=== PATIENT | male | born 1985 | race Caucasian/White ===

== ENCOUNTER 2017-02-13 02:35 | Emergency (ER) | payer MEDICAID ==
[2017-02-13 02:51] VITALS: BP 134/92
[2017-02-13] MEDS ORDERED: Acetaminophen/HYDROcodone 325-10 MG Tab PO ONE (03:03)
[2017-02-13] MEDS ORDERED: Ketorolac 60 MG/2 ML SDV IM ONE (03:03)
--- NOTE | 2017-02-13 03:03 | EDM.PDOC ---
ED HPI GENERAL MEDICAL PROBLEM - General Chief Complaint: ENT Problem Stated Complaint: abscessed tooth Time Seen by Provider: 02/13/17 02:45 Source of Information: Reports: Patient History Limitations: Reports: No Limitations - History of Present Illness INITIAL COMMENTS - FREE TEXT/NARRATIVE: 31 YO WM presents to ER with toothache x 2 days. Pt reports he woke from sleep this am with swelling and pain to right lower katheryn prompting ER evaluation. Pt denies any fever/chills. Pt reports history of dental infections to this specific tooth. 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 Right Face Pain Score (Numeric/FACES): 8 - Related Data Allergies Allergy/AdvReac Type Severity Reaction Status Date / Time No Known Drug Allergies Allergy Cannot Verified 02/13/17 02:42 Remember Home Meds: Home Meds Cetirizine HCl [Cetirizine HCl] 10 mg PO DAILY 06/01/15 [History] Fluticasone Propionate [Flovent Diskus] 50 mcg KAILA DAILY 06/01/15 [History] Fluticasone Propionate [Flovent HFA 110 MCG] 2 puff INH Q4HR PRN 06/01/15 [ History] Lisinopril [Lisinopril] 10 mg PO DAILY 06/01/15 [History] Ibuprofen 400 mg PO TID 08/10/15 [History] Multivitamin [Daily Nida] 1 tab PO DAILY 12/14/15 [History] atorvaSTATin [Lipitor] 10 mg PO BEDTIME 12/14/15 [History] Albuterol [Ventolin HFA] 1 - 2 puff INH Q4H PRN 02/13/17 [History] Hydrocodone/Acetaminophen [Hydrocodon-Acetaminophn 10-325] 1 tab PO Q6H PRN #15 tablet 02/13/17 [Rx] Ibuprofen [Motrin] 800 mg PO Q8H #15 tablet 02/13/17 [Rx] Metoprolol Succinate 12.5 mg PO DAILY 02/13/17 [History] Penicillin V Potassium [IJD: Penicillin V Potassium] 500 mg PO .EVERY 6 HOURS # 40 tab 02/13/17 [Rx] Past Medical History HEENT History: Reports: Other (See Below) Other HEENT History: abscess tooth to right lower mouth Cardiovascular History: Reports: High Cholesterol, Hypertension Other Respiratory History: meningitis and pneumonia as a baby Gastrointestinal History: Reports: None Psychiatric History: Reports: ADHD Endocrine/Metabolic History: Reports: Obesity/BMI 30+ - Infectious Disease History Infectious Disease History: Reports: Chicken Pox, Meningitis - Past Surgical History HEENT Surgical History: Reports: Other (See Below) Cardiovascular Surgical History: Reports: Other (See Below) Respiratory Surgical History: Reports: None Social & Family History - Tobacco Use Smoking Status *Q: Never Smoker Second Hand Smoke Exposure: No - Caffeine Use Caffeine Use: Reports: Soda - Recreational Drug Use Recreational Drug Use: No - Living Situation & Occupation Living situation: Reports: Occupation: Employed ED ROS ENT - Review of Systems Review Of Systems: See Below Constitutional: Reports: No Symptoms HEENT: Reports: No Symptoms Respiratory: Reports: No Symptoms Cardiovascular: Reports: No Symptoms Endocrine: Reports: No Symptoms GI/Abdominal: Reports: No Symptoms : Reports: No Symptoms Musculoskeletal: Reports: No Symptoms Skin: Reports: No Symptoms Neurological: Reports: No Symptoms Psychiatric: Reports: No Symptoms Hematologic/Lymphatic: Reports: No Symptoms Immunologic: Reports: No Symptoms ED EXAM, ENT - Physical Exam Exam: See Below Exam Limited By: No Limitations General Appearance: Alert, WD/WN, No Apparent Distress Ears: Normal External Exam, Normal Canal, Hearing Grossly Normal, Normal TMs Nose: Normal Inspection, Normal Mucousa, No Blood Mouth/Throat: Dental Abcess, Dental Pain, Dental Tenderness Head: Atraumatic, Normocephalic Neck: Normal Inspection, Supple, Non-Tender, Full Range of Motion Respiratory/Chest: No Respiratory Distress, Lungs Clear, Normal Breath Sounds, No Accessory Muscle Use, Chest Non-Tender Cardiovascular: Normal Peripheral Pulses, Regular Rate, Rhythm, No Edema, No Gallop, No JVD, No Murmur, No Rub GI/Abdominal: Normal Bowel Sounds, Soft, Non-Tender, No Organomegaly, No Distention, No Abnormal Bruit, No Mass Back: Normal Inspection, Full Range of Motion Extremities: Normal Inspection, Normal Range of Motion, Non-Tender, No Pedal Edema, Normal Capillary Refill Neurological: Alert, Oriented, CN II-XII Intact, Normal Cognition, Normal Gait, Normal Reflexes, No Motor/Sensory Deficits Psychiatric: Normal Affect, Normal Mood Skin: Warm, Dry, Intact, Normal Color, No Rash Lymphatic: No Adenopathy Course - Vital Signs Last Recorded V/S: Last Vital Signs Temp 37.2 C 02/13/17 02:49 Pulse 62 02/13/17 02:49 Resp 12 02/13/17 02:49 BP 134/92 H 02/13/17 02:49 Pulse Ox 98 02/13/17 02:49 - Orders/Labs/Meds Orders: Active Orders 24 hr Category Date Time Status Acetaminophen/HYDROcodone [[place] 325-10 MG] Med 02/13/17 03:03 Once 1 tab PO ONETIME ONE Ketorolac [Toradol] Med 02/13/17 03:03 Once 60 mg IM ONETIME ONE Penicillin V Potassium [Veetids] Med 02/13/17 03:15 Ordered 250 mg PO Q8H Departure - Departure Time of Disposition: 03:10 Disposition: Home, Self-Care 01 Condition: Good Clinical Impression: Dental abscess - Discharge Information Prescriptions: Hydrocodone/Acetaminophen [Hydrocodon-Acetaminophn 10-325] 1 tab PO Q6H PRN #15 tablet PRN Reason: Pain Ibuprofen [Motrin] 800 mg PO Q8H #15 tablet Penicillin V Potassium [IJD: Penicillin V Potassium] 500 mg PO .EVERY 6 HOURS # 40 tab Instructions: Dental Abscess Forms: ED Department Discharge - My Orders Last 24 Hours: My Active Orders 02/13/17 03:03 Acetaminophen/HYDROcodone [[place] 325-10 MG] 1 tab PO ONETIME ONE Ketorolac [Toradol] 60 mg IM ONETIME ONE 02/13/17 03:15 Penicillin V Potassium [Veetids] 250 mg PO Q8H - Assessment/Plan Last 24 Hours: My Active Orders 02/13/17 03:03 Acetaminophen/HYDROcodone [[place] 325-10 MG] 1 tab PO ONETIME ONE Ketorolac [Toradol] 60 mg IM ONETIME ONE 02/13/17 03:15 Penicillin V Potassium [Veetids] 250 mg PO Q8H Assessment:: 1. dental abscess Plan: 1. pen Vee K 500mg PO Q6 x 10 days 2. hydrocodone 10mg Q6 PRN 3. motrin 800mg PO Q8 4. follow up with dentist in 2 days for further evaluation and treatment
[2017-02-13] MEDS ORDERED: Acetaminophen/HYDROcodone 325-5 MG Tab ONE ×2 (03:04→03:14)
[2017-02-13] MEDS ORDERED: Penicillin V Potassium 250 MG Tab ONE (03:04)
[2017-02-13] MEDS ORDERED: Ketorolac 60 MG/2 ML SDV ONE (03:05)
[2017-02-13] MEDS ORDERED: Penicillin V Potassium 250 MG Tab PO ONE (03:15)
[2017-02-13] MEDS ORDERED: Penicillin V Potassium 250 MG Tab PO SCH (03:15)
[2017-02-13] MEDS ORDERED: Acetaminophen/HYDROcodone 325-5 MG Tab PO ONE (03:35)
== END 2017-02-13 03:25 | disposition home or self-care (01) ==
LOC: KA.ED 02:35
DX: K04.7 Periapical abscess without sinus (principal); I10 Essential (primary) hypertension; E78.00 Pure hypercholesterolemia, unspecified; E66.9 Obesity, unspecified; Z68.31 Body mass index [BMI] 31.0-31.9, adult; Z87.01 Personal history of pneumonia (recurrent); Z79.899 Other long term (current) drug therapy
CPT/HCPCS: 96372; 99282; A9270; J1885

== ENCOUNTER 2020-03-15 14:13 | Observation (INO) | payer MEDICAID ==
[2020-03-15] MEDS ORDERED: Sodium Chloride 0.9% 10 ML Syringe FLUSH PRN (14:14)
[2020-03-15] MEDS ORDERED: Aspirin 81 MG Tab.Chew PO SCH (14:30)
--- NOTE | 2020-03-15 18:54 | PCM.SN.2 ---
- Free Text/Narrative Note: Rounding note, patient sitting up in bed conversing with 4/10 chest pain. Initial troponin 0.08. No shortness of breath. Repeat troponin due now. Patient did state to nursing staff that he desires to be discharged if repeat troponin levels are normal.
[2020-03-15 19:03] VITALS: BP 116/79; PULSE 78
== END 2020-03-15 21:05 | disposition home or self-care (01) ==
LOC: KA.MS 15:12
PROVIDERS: ADMIT Nurse Practitioner Family; ATTEND Nurse Practitioner Family
DX: I25.110 Atherosclerotic heart disease of native coronary artery with unstable angina pectoris (principal); G89.29 Other chronic pain; I10 Essential (primary) hypertension; E66.9 Obesity, unspecified; R53.82 Chronic fatigue, unspecified; F33.0 Major depressive disorder, recurrent, mild; E55.9 Vitamin D deficiency, unspecified; F41.9 Anxiety disorder, unspecified; K21.9 Gastro-esophageal reflux disease without esophagitis; Z79.899 Other long term (current) drug therapy; Z68.33 Body mass index [BMI] 33.0-33.9, adult; Z95.5 Presence of coronary angioplasty implant and graft; Z82.49 Family history of ischemic heart disease and other diseases of the circulatory system; Z79.82 Long term (current) use of aspirin
CPT/HCPCS: 36415; 84484; A9270-GY; G0378

== ENCOUNTER 2020-03-28 20:03 | Emergency (ER) | payer MEDICAID ==
[2020-03-28] MEDS ORDERED: Aspirin 81 MG Tab.Chew ONE (20:19)
[2020-03-28] MEDS ORDERED: Aspirin 81 MG Tab.Chew PO ONE (20:33)
[2020-03-28 21:14] LABS: ANION GAP 15.5 mmol/L (5-15); CHLORIDE,CL 102 mmol/L (98-115); SODIUM,NA 138 mmol/L (136-145)
[2020-03-28] MEDS ORDERED: Nitroglycerin 0.4 MG Tab.SL ONE (21:20)
[2020-03-28] MEDS ORDERED: Nitroglycerin 0.4 MG Tab.SL SL ONE (21:24)
[2020-03-28] MEDS ORDERED: Alum Hydrox/Mag Hydrox/Simeth 30 ML, Lidocaine 2% 15 ML PO ONE ×2 (21:41)
[2020-03-28] MEDS ORDERED: Diazepam 5 MG Tab PO ONE (21:44)
[2020-03-28 21:56] VITALS: PULSE 81
[2020-03-28 22:23] VITALS: BP 117/89
--- NOTE | 2020-03-28 22:25 | EDM.PDOC ---
ED HPI GENERAL MEDICAL PROBLEM - General Chief Complaint: Cardiovascular Problem Stated Complaint: CHEST PAIN Time Seen by Provider: 03/28/20 20:15 Source of Information: Reports: Patient, Family (sister) - History of Present Illness INITIAL COMMENTS - FREE TEXT/NARRATIVE: 34-year-old male presents emergency room with complaint of chest pain. She states that he's had chest pain for about 2 weeks and had an overnight admission and workup for his chest pain with EKGs and serial troponins. He followed up with his primary care most recently yesterday with a troponin of 0.08. He reports that his chest pain is been consistently there for the last 2 weeks but waxes and wanes. This morning when he woke up symptoms seem to last for 30 minutes. They're relieved when he lies down. He has no radiation of the pain to his jaw neck shoulder and arm back or abdomen. He is not had episodes of diaphoresis currently his chest pain seemed to worsen this evening between 7 and 7:15 rating it a 7 or 8 out of possible 10. He took a nitroglycerin and it relieved his pain by half. He feels the chest pain was a 45 after the nitroglycerin. He elected to have further workup and proceed to the emergency room and was brought in by his sister. Currently his pain is a 4 out of 5. He was given an additional nitroglycerin at 2125 and had improvement of his pain now rated only a 2 out of 10. His vital signs blood pressures were within his normal range. He was afebrile. O2 saturations were in the high 90's% on room air. Past medical history significant for mild asthma coronary artery disease hypercholesterol. Past surgical history significant for stent placement in 2018. He has had a repeat angiogram for his chronic chest pain in 2019 which was per patient report unremarkable. He has seen GI and has had an upper GI scope in the last year he has history of a hiatal hernia and reflux disease. He reports his reflux seems to be fairly well controlled with omeprazole. He gets short of breath sometimes but feels this is likely from his asthma and not from exercise or extra-axial cavity. Cholesterol is been well controlled on statins. He takes an aspirin a day. He does not smoke or chew he does not use drugs. He had a recent follow-up with cardiology 6 months ago and he states that they changed his isosorbide. He does tell me that he has had some anxiety in the past and has tried Xanax without relief. He does state that he has also had some depression but is not currently on anything for this over the last 4 years he feels it's fairly well controlled. Did repeat his EKG which showed a normal sinus rhythm and pulse rate is 76 bpm. His troponin is within normal limits. Onset: Gradual, Unknown/Unsure Duration: Week(s):, Chronic, Intermittent, Recurring, Waxing/Waning Location: Reports: Chest Quality: Reports: Pressure Severity: Moderate Improves with: Reports: Medication, Rest Worsens with: Reports: Other (unknown) Associated Symptoms: Reports: Chest Pain, Malaise. 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: Nitroglycerin Chest Pain Score (Numeric/FACES): 2 - Related Data Allergies Allergy/AdvReac Type Severity Reaction Status Date / Time Seasonal Allergy Shortness Uncoded 03/28/20 21:52 of Breath Home Meds: Home Meds Cetirizine HCl 10 mg PO DAILY 06/01/15 [History] Lisinopril 10 mg PO DAILY 06/01/15 [History] atorvaSTATin [Lipitor] 10 mg PO BEDTIME 12/14/15 [History] Albuterol [Ventolin HFA] 2 puff INH ASDIRECTED PRN 02/13/17 [History] Ascorbate Calcium [Vitamin C] 500 mg PO DAILY 06/09/18 [History] Aspirin [Adult Low Dose Aspirin EC] 81 mg PO DAILY 06/09/18 [History] Azelastine HCl 1 spray NASBOTH BID PRN 06/09/18 [History] Montelukast [Singulair] 10 mg PO BEDTIME 06/09/18 [History] Nitroglycerin [Nitrostat] 0.4 mg SL ASDIRECTED PRN 06/09/18 [History] amLODIPine [Norvasc] 5 mg PO DAILY 06/09/18 [History] Budesonide [Pulmicort] 0.5 mg IH BID 03/15/20 [History] Cholecalciferol (Vitamin D3) [Vitamin D3] 2,000 unit PO DAILY 03/15/20 [History] EPINEPHrine [Epinephrine] 0.3 mg IM ASDIRECTED PRN 03/15/20 [History] Fluticasone Propionate [Flovent HFA 110 MCG] 2 puff PO BEDTIME 03/15/20 [History] Isosorbide Mononitrate [Imdur] 60 mg PO BID 03/15/20 [History] Omeprazole 40 mg PO DAILY 03/15/20 [History] Past Medical History HEENT History: Reports: Other (See Below) Other HEENT History: abscess tooth to right lower mouth, sinus congesstion Cardiovascular History: Reports: High Cholesterol, Hypertension, Stents, Syncope, Other (See Below) Other Cardiovascular History: mitral valve regurgitation Respiratory History: Reports: Asthma, Other (See Below) Other Respiratory History: meningitis and pneumonia as a baby Gastrointestinal History: Reports: Hiatal Hernia Psychiatric History: Reports: ADHD Endocrine/Metabolic History: Reports: Obesity/BMI 30+, Vitamin D Deficiency Hematologic History: Reports: Anticoagulation Therapy - Infectious Disease History Infectious Disease History: Reports: None - Past Surgical History HEENT Surgical History: Reports: None, Other (See Below) Other HEENT Surgeries/Procedures: repair of deviated septum Cardiovascular Surgical History: Reports: Coronary Artery Stent, Other (See Below) Other Cardiovascular Surgeries/Procedures: Angiogram Respiratory Surgical History: Reports: None GI Surgical History: Reports: None Endocrine Surgical History: Reports: None Social & Family History - Family History Family Medical History: Noncontributory - Tobacco Use Smoking Status *Q: Never Smoker - Caffeine Use Caffeine Use: Reports: Coffee, Soda - Recreational Drug Use Recreational Drug Use: No - Living Situation & Occupation Living situation: Reports: Occupation: Employed ED ROS GENERAL - Review of Systems Review Of Systems: See Below Constitutional: Reports: Malaise, Fatigue, Night Sweats. Denies: Fever, Chills, Weakness, Diaphoresis HEENT: Reports: Sinus Problem. Denies: Eye Pain, Throat Swelling, Vertigo Respiratory: Reports: Shortness of Breath. Denies: Wheezing, Pleuritic Chest Pain, Sputum Cardiovascular: Reports: Chest Pain, Blood Pressure Problem, Palpitations. Denies: Dyspnea on Exertion, Edema, Lightheadedness, Orthopnea, PND, Syncope Endocrine: Reports: No Symptoms GI/Abdominal: Reports: No Symptoms : Reports: No Symptoms Musculoskeletal: Denies: Neck Pain, Shoulder Pain, Arm Pain, Back Pain, Leg Pain Skin: Denies: Cyanosis, Diaphoresis, Bruising, Pruritis Neurological: Reports: Headache, Numbness (occasionally hands and legs). Denies: Paresthesia, Trouble Speaking, Difficulty Walking Psychiatric: Reports: Anxiety, Depression Hematologic/Lymphatic: Reports: No Symptoms Immunologic: Reports: No Symptoms ED EXAM, GENERAL - Physical Exam Exam: See Below Exam Limited By: No Limitations General Appearance: Alert, WD/WN, No Apparent Distress, Obese Eye Exam: Bilateral Eye: EOMI Ears: Hearing Grossly Normal Nose: Normal Inspection Throat/Mouth: Normal Voice, No Airway Compromise Head: Atraumatic, Normocephalic Neck: Normal Inspection, Supple, Non-Tender, Full Range of Motion Respiratory/Chest: No Respiratory Distress, Lungs Clear, Normal Breath Sounds, No Accessory Muscle Use, Chest Non-Tender Cardiovascular: Normal Peripheral Pulses, Regular Rate, Rhythm, No JVD, No Murmur Peripheral Pulses: 2+: Radial (L), Radial (R), Dorsalis Pedis (L), Dorsalis Pedis (R) GI/Abdominal: Normal Bowel Sounds, Soft, Non-Tender, No Organomegaly, No Distention, No Abnormal Bruit, No Mass, Other (obese) Back Exam: Normal Inspection, Full Range of Motion Extremities: Normal Inspection, Normal Range of Motion, Non-Tender, No Pedal Edema Neurological: Alert, Oriented, Normal Cognition, No Motor/Sensory Deficits Psychiatric: Normal Mood, Flat Affect Skin Exam: Warm, Dry, Intact, Normal Color, No Rash Lymphatic: No Adenopathy EKG INTERPRETATION EKG Date: 03/28/20 Time: 20:10 Rhythm: NSR Rate (Beats/Min): 76 [place]: Normal P-Wave: Present QRS: Normal ST-T: Normal QT: Normal Comparison: No Change EKG Interpretation Comments: Normal sinus rhythm normal ECG Course - Vital Signs Last Recorded V/S: Last Vital Signs Temp 97.7 F 03/28/20 21:55 Pulse 81 03/28/20 21:55 Resp 20 03/28/20 21:55 BP 118/84 03/28/20 21:55 Pulse Ox 95 03/28/20 21:55 - Orders/Labs/Meds Orders: Active Orders 24 hr Category Date Time Status EKG Documentation Completion [RC] ASDIRECTED Care 03/28/20 20:33 Active EKG 12 Lead [EK] Stat Ther 03/28/20 20:32 Ordered Labs: Laboratory Tests 03/28/20 03/28/20 03/28/20 Range/Units 20:30 20:30 20:30 WBC 9.23 (5.00-10.00) 10^3/uL RBC 5.26 (4.50-6.00) 10^6/uL Hgb 15.8 (13.0-17.0) g/dL Hct 44.7 (40.0-52.0) % MCV 85.0 (82.0-92.0) fL MCH 30.0 (27.0-31.0) pg MCHC 35.3 (32.0-36.0) g/dL RDW 12.0 (11.5-14.5) % Plt Count 269 (150-400) 10^3/uL MPV 9.4 (7.4-10.4) fL Immature Gran % (Auto) 0.2 (0.0-5.0) % Neut % (Auto) 60.3 (50.0-70.0) % Lymph % (Auto) 28.4 (20.0-40.0) % [place] % (Auto) 9.4 H (2.0-8.0) % Eos % (Auto) 1.4 (1.0-3.0) % Baso % (Auto) 0.3 (0.0-1.0) % Neut # (Auto) 5.56 (2.50-7.00) 10^3/uL Lymph # (Auto) 2.62 (1.00-4.00) 10^3/uL [place] # (Auto) 0.87 H (0.10-0.80) 10^3/uL Eos # (Auto) 0.13 (0.10-0.30) 10^3/uL Baso # (Auto) 0.03 (0.00-0.10) 10^3/uL Immature Gran # (Auto) 0.02 (0.00-0.50) 10^3/uL D-Dimer, Quantitative 142 (<400) ng/mL Sodium 138 (136-145) mmol/L Potassium 3.7 (3.3-5.3) mmol/L Chloride 102 (98-115) mmol/L Carbon Dioxide 24.2 (21.0-32.0) mmol/L Anion Gap 15.5 H (5-15) mmol/L BUN 14 (6-25) mg/dL Creatinine 0.80 (0.51-1.17) mg/dL Est Cr Clr Drug Dosing 128.88 mL/min Estimated GFR (MDRD) > 60 mL/min Glucose 131 H (75 - 99) mg/dL Calcium 8.3 L (8.7-10.3) mg/dL Total Bilirubin 0.3 (0.2-1.0) mg/dL AST 19 (15-37) U/L ALT 38 (12-78) U/L Alkaline Phosphatase 105 (46-116) IU/L Troponin I 0.06 (0.00-0.070) ng/mL Total Protein 7.0 (6.4-8.2) g/dL Albumin 3.92 (3.00-4.80) g/dL Meds: Medications Discontinued Medications Generic Name Dose Route Start Last Admin Trade Name Freq PRN Reason Stop Dose Admin Aspirin Confirm 03/28/20 20:19 03/28/20 20:49 Aspirin Administered 03/28/20 20:20 Not Given Dose 324 mg .ROUTE .STK-MED ONE Aspirin 324 mg 03/28/20 20:33 03/28/20 20:20 Aspirin PO 03/28/20 20:34 324 mg ONETIME ONE Administration Al Hydroxide/Mg Hydroxide 30 0 ml 03/28/20 21:41 03/28/20 21:46 ml/ Lidocaine HCl 15 ml PO 03/28/20 21:42 45 ml ONETIME ONE Administration Diazepam 5 mg 03/28/20 21:44 03/28/20 21:49 Valium. PO 03/28/20 21:45 5 mg ONETIME ONE Administration Nitroglycerin Confirm 03/28/20 21:20 03/28/20 21:25 Nitrostat Administered 03/28/20 21:21 Not Given Dose 0.4 mg .ROUTE .STK-MED ONE Nitroglycerin 0.4 mg 03/28/20 21:24 03/28/20 21:26 Nitrostat SL 03/28/20 21:25 0.4 mg ONETIME ONE Administration Departure - Departure Time of Disposition: 22:29 Disposition: Home, Self-Care 01 Condition: Good Clinical Impression: Stable angina, Chronic chest pain, History of coronary artery stent placement, History of hiatal hernia, History of anxiety GERD (gastroesophageal reflux disease) Qualifiers: Esophagitis presence: without esophagitis Qualified Code(s): K21.9 - Gastro- esophageal reflux disease without esophagitis Instructions: Angina, [id number] Referrals: Carmel Burkett CANE PUSHER [Primary Care Provider] - Forms: ED Department Discharge Additional Instructions: Follow-up Recommendations to the emergency room: -Chest discomfort last greater than 5 minutes -Chest discomfort gets worse in any way -History of angina, and discomfort not relieved by usual medications, nitroglycerin, at rest -Chest discomfort moves anterior arm, neck, back, jaw, or stomach -If you experience diaphoresis associated with chest pain. Follow-up with your primary care for your chest pain for outpatient assessment. Sepsis Event Note (ED) - Evaluation Sepsis Screening Result: No Definite Risk - Focused Exam Vital Signs: Vital Signs Temp Pulse Resp BP BP Pulse Ox 03/28/20 21:55 97.7 F 81 20 118/84 95 03/28/20 21:34 84 20 123/73 96 03/28/20 21:26 141/97 H 03/28/20 21:00 91 20 153/103 H 97 03/28/20 20:35 97.4 F 97 20 134/83 97 - My Orders Last 24 Hours: My Active Orders 03/28/20 20:32 EKG 12 Lead [EK] Stat 03/28/20 20:33 EKG Documentation Completion [RC] ASDIRECTED - Assessment/Plan Last 24 Hours: My Active Orders 03/28/20 20:32 EKG 12 Lead [EK] Stat 03/28/20 20:33 EKG Documentation Completion [RC] ASDIRECTED Assessment:: Stable angina Chronic chest pain History of coronary artery stent History of hiatal hernia History of reflux History of anxiety Plan: Follow-up Recommendations to the emergency room: -Chest discomfort last greater than 5 minutes -Chest discomfort gets worse in any way -History of angina, and discomfort not relieved by usual medications, nitroglycerin, at rest -Chest discomfort moves anterior arm, neck, back, jaw, or stomach -If you experience diaphoresis associated with chest pain. Follow-up with your primary care for your chest pain for outpatient assessment. I had a long discussion with the patient regarding his workup this evening as well as his past. Troponin is within normal limits and his EKG looks unremarkable with a normal sinus rhythm no evidence of ST elevation or depression. No T-wave abnormalities. His symptoms have been chronic over the last 2 years as he has told me with an exacerbation of the symptoms over the last 2 weeks. He has not had a recent stress test since his stent placement in 2018. He though has had a repeat angiogram a year ago and alert unremarkable. We had a long discussion about placing him observational telemetry tonight versus being discharged to home. He feels comfortable with going home tonight but with the understanding that if any of the above following recommendations that I discharge with him should occur that he would return to the emergency room. I do recommend that he follow-up with his primary care and consideration for further workup was discussed with the patient. He was discharged home with his sister in stable condition.
== END 2020-03-28 22:30 | disposition home or self-care (01) ==
LOC: KA.ED 20:03
DX: I25.119 Atherosclerotic heart disease of native coronary artery with unspecified angina pectoris (principal); K21.9 Gastro-esophageal reflux disease without esophagitis; F41.9 Anxiety disorder, unspecified; E78.00 Pure hypercholesterolemia, unspecified; I10 Essential (primary) hypertension; J45.909 Unspecified asthma, uncomplicated; E66.9 Obesity, unspecified; Z68.34 Body mass index [BMI] 34.0-34.9, adult; Z95.5 Presence of coronary angioplasty implant and graft; Z87.19 Personal history of other diseases of the digestive system; Z91.09 Other allergy status, other than to drugs and biological substances; Z79.899 Other long term (current) drug therapy; Z79.82 Long term (current) use of aspirin
CPT/HCPCS: 36415; 80053; 84484; 85025; 85379; 93005; 99285-25; A9270-GY

== ENCOUNTER 2021-03-06 20:12 | Emergency (ER) | payer MEDICAID ==
--- NOTE | 2021-03-06 20:54 | EDM.PDOC ---
ED HPI GENERAL MEDICAL PROBLEM - General Chief Complaint: Chest Pain Stated Complaint: chest pain Time Seen by Provider: 03/06/21 20:37 Source of Information: Reports: Patient, Significant Other History Limitations: Reports: No Limitations - History of Present Illness INITIAL COMMENTS - FREE TEXT/NARRATIVE: Patient presents with chest pain that started about 9.5 hours ago at 4-5/10 (that was about 1100). At 1900, 1.5 hours ago the pain became worse 6-7/10 and his noticed a little sweating for 3-4 minutes. He also has pain in his left elbow. He has taken 3 adult aspirin today. He sometimes takes a nitro but didn't today because his BP was low. He had a LAD stent placed in 2018 and in recovery afterward had an DE. Since then he has had a few episodes of chest p ain that brought him to ER. He also had a stressful argument with his earlier today. Left Chest Pain Score (Numeric/FACES): 6 - Related Data Allergies Allergy/AdvReac Type Severity Reaction Status Date / Time Seasonal Allergy Shortness Uncoded 03/28/20 21:52 of Breath Home Meds: Home Meds Cetirizine HCl 10 mg PO DAILY 06/01/15 [History] Lisinopril 10 mg PO DAILY 06/01/15 [History] atorvaSTATin [Lipitor] 10 mg PO BEDTIME 12/14/15 [History] Albuterol [Ventolin HFA] 2 puff INH ASDIRECTED PRN 02/13/17 [History] Ascorbate Calcium [Vitamin C] 500 mg PO DAILY 06/09/18 [History] Aspirin [Adult Low Dose Aspirin EC] 81 mg PO DAILY 06/09/18 [History] Azelastine HCl 1 spray NASBOTH BID PRN 06/09/18 [History] Montelukast [Singulair] 10 mg PO BEDTIME 06/09/18 [History] Nitroglycerin [Nitrostat] 0.4 mg SL ASDIRECTED PRN 06/09/18 [History] amLODIPine [Norvasc] 5 mg PO DAILY 06/09/18 [History] Budesonide [Pulmicort] 0.5 mg IH BID 03/15/20 [History] Cholecalciferol (Vitamin D3) [Vitamin D3] 2,000 unit PO DAILY 03/15/20 [History] EPINEPHrine [Epinephrine] 0.3 mg IM ASDIRECTED PRN 03/15/20 [History] Fluticasone Propionate [Flovent HFA 110 MCG] 2 puff PO BEDTIME 03/15/20 [History] Isosorbide Mononitrate [Imdur] 60 mg PO BID 03/15/20 [History] Omeprazole 40 mg PO DAILY 03/15/20 [History] Past Medical History HEENT History: Reports: Other (See Below) Other HEENT History: abscess tooth to right lower mouth, sinus congesstion Cardiovascular History: Reports: High Cholesterol, Hypertension, Stents, Syncope, Other (See Below) Other Cardiovascular History: mitral valve regurgitation Respiratory History: Reports: Asthma, Other (See Below) Other Respiratory History: meningitis and pneumonia as a baby Gastrointestinal History: Reports: Hiatal Hernia Psychiatric History: Reports: ADHD Endocrine/Metabolic History: Reports: Obesity/BMI 30+, Vitamin D Deficiency Hematologic History: Reports: Anticoagulation Therapy - Infectious Disease History Infectious Disease History: Reports: None - Past Surgical History HEENT Surgical History: Reports: None, Other (See Below) Other HEENT Surgeries/Procedures: repair of deviated septum Cardiovascular Surgical History: Reports: Coronary Artery Stent, Other (See Below) Other Cardiovascular Surgeries/Procedures: Angiogram Respiratory Surgical History: Reports: None GI Surgical History: Reports: None Endocrine Surgical History: Reports: None Social & Family History - Family History Family Medical History: No Pertinent Family History - Caffeine Use Caffeine Use: Reports: Coffee, Soda - Living Situation & Occupation Living situation: Reports: Occupation: Employed ED ROS GENERAL - Review of Systems Review Of Systems: See Below Constitutional: Denies: Fever, Chills, Malaise, Weakness HEENT: Denies: Throat Pain, Vision Change Respiratory: Denies: Shortness of Breath, Cough Cardiovascular: Reports: Chest Pain. Denies: Lightheadedness, Syncope GI/Abdominal: Denies: Abdominal Pain, Constipation, Diarrhea, Nausea, Vomiting : Denies: Dysuria, Flank Pain Musculoskeletal: Reports: Arm Pain (left). Denies: Neck Pain, Shoulder Pain, Back Pain, Hand Pain Skin: Reports: Diaphoresis. Denies: Cyanosis, Jaundice, Mottled, Pallor Neurological: Denies: Confusion, Dizziness, Headache, Seizure, Syncope, Trouble Speaking, Difficulty Walking Psychiatric: Denies: Agitation, Anxiety, Confusion ED EXAM, GENERAL - Physical Exam Exam: See Below Exam Limited By: No Limitations General Appearance: Alert, WD/WN, No Apparent Distress Eye Exam: Bilateral Eye: EOMI, Normal Inspection, PERRL Ears: Normal External Exam, Hearing Grossly Normal Nose: Normal Inspection, No Blood Throat/Mouth: Normal Inspection, Normal Lips, Normal Voice, No Airway Compromise Head: Atraumatic, Normocephalic Neck: Normal Inspection, Full Range of Motion Respiratory/Chest: No Respiratory Distress, Lungs Clear, Normal Breath Sounds Cardiovascular: Regular Rate, Rhythm, No Murmur GI/Abdominal: Normal Bowel Sounds, Soft, Non-Tender, No Organomegaly, No Distention Back Exam: Normal Inspection, Full Range of Motion. No: CVA Tenderness (L), CVA Tenderness (R) Extremities: Normal Inspection, Normal Range of Motion Neurological: Alert, Oriented, Normal Cognition, No Motor/Sensory Deficits Psychiatric: Normal Affect, Normal Mood Skin Exam: Warm, Dry, Intact, No Rash, Pallor (they think he is a little pale) #1 Interpretation EKG Date: 03/06/21 Rhythm: NSR Rate (Beats/Min): 74 [place]: Normal P-Wave: Present QRS: Normal ST-T: Normal (with inverted T in III, V1) QT: Normal Course - Vital Signs Last Recorded V/S: Last Vital Signs Temp 97.0 F 03/06/21 20:15 Pulse 80 03/06/21 20:15 Resp 16 03/06/21 20:15 BP 138/96 H 03/06/21 20:15 Pulse Ox 96 03/06/21 20:15 - Orders/Labs/Meds Orders: Active Orders 24 hr Category Date Time Status Chest 1V Frontal [CR] Routine Exams 03/06/21 20:53 Ordered Labs: Laboratory Tests 03/06/21 03/06/21 Range/Units 20:45 20:45 WBC 10.56 H (5.00-10.00) 10^3/uL RBC 5.13 (4.50-6.00) 10^6/uL Hgb 15.2 (13.0-17.0) g/dL Hct 43.9 (40.0-52.0) % MCV 85.6 (82.0-92.0) fL MCH 29.6 (27.0-31.0) pg MCHC 34.6 (32.0-36.0) g/dL RDW 12.5 (11.5-14.5) % Plt Count 264 (150-400) 10^3/uL MPV 9.4 (7.4-10.4) fL Immature Gran % (Auto) 0.2 (0.0-5.0) % Neut % (Auto) 57.0 (50.0-70.0) % Lymph % (Auto) 30.8 (20.0-40.0) % [place] % (Auto) 9.5 H (2.0-8.0) % Eos % (Auto) 1.9 (1.0-3.0) % Baso % (Auto) 0.6 (0.0-1.0) % Neut # (Auto) 6.03 (2.50-7.00) 10^3/uL Lymph # (Auto) 3.25 (1.00-4.00) 10^3/uL [place] # (Auto) 1.00 H (0.10-0.80) 10^3/uL Eos # (Auto) 0.20 (0.10-0.30) 10^3/uL Baso # (Auto) 0.06 (0.00-0.10) 10^3/uL Immature Gran # (Auto) 0.02 (0.00-0.50) 10^3/uL Sodium 139 (136-145) mmol/L Potassium 3.7 (3.5-5.1) mmol/L Chloride 102 (98-107) mmol/L Carbon Dioxide 24.5 (21.0-32.0) mmol/L Anion Gap 16.2 H (5-15) mmol/L BUN 11 (7-18) mg/dL Creatinine 0.87 (0.51-1.17) mg/dL Est Cr Clr Drug Dosing 117.38 mL/min Estimated GFR (MDRD) > 60 mL/min Glucose 104 (70-140) mg/dL Calcium 8.3 L (8.7-10.3) mg/dL Total Bilirubin 0.3 (0.2-1.0) mg/dL AST 19 (15-37) U/L ALT 41 (14-63) U/L Alkaline Phosphatase 108 (46-116) U/L Troponin I High Sens 5.100 (0-76.000) pg/mL Total Protein 6.8 (6.4-8.2) g/dL Albumin 3.82 (3.40-5.00) g/dL Meds: Medications Discontinued Medications Generic Name Dose Route Start Last Admin Trade Name Mynor PRN Reason Stop Dose Admin Al Hydroxide/Mg Hydroxide 30 0 ml 03/06/21 21:07 ml/ Lidocaine HCl 15 ml PO 03/06/21 21:08 ONETIME ONE - Re-Assessments/Exams Free Text/Narrative Re-Assessment/Exam: 03/06/21 21:39 Troponin is 5.1 and other labs are good too. EKG is NSR. CXR is clear. Patient is not having any chest pain or tightness. We discussed findings and recommendations. To be certain of no DE a second troponin would be necessary but with the low number patient wants to go home as he is sure it isn't that. 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 He is almost at the 6-month follow up there as well. Patient is discharged to home in stable condition. Departure - Departure Time of Disposition: 21:37 Disposition: Home, Self-Care 01 Condition: Good Clinical Impression: Non-cardiac chest pain, Stress at home Instructions: Nonspecific Chest Pain, Adult Forms: ED Department Discharge Additional Instructions: Drink 8 cups of water daily. Take your medications as directed. Follow up with your PCP as scheduled and call cardiology for follow up appointment. Return to ER as needed. Sepsis Event Note (ED) - Focused Exam Vital Signs: Vital Signs Temp Pulse Resp BP Pulse Ox 03/06/21 20:15 97.0 F 80 16 138/96 H 96 - My Orders Last 24 Hours: My Active Orders 03/06/21 20:53 Chest 1V Frontal [CR] Routine - Assessment/Plan Last 24 Hours: My Active Orders 03/06/21 20:53 Chest 1V Frontal [CR] Routine
[2021-03-06] MEDS ORDERED: Alum Hydrox/Mag Hydrox/Simeth 30 ML, Lidocaine 2% 15 ML PO ONE ×2 (21:07)
[2021-03-06 21:11] LABS: ANION GAP 16.2 mmol/L (5-15); CHLORIDE,CL 102 mmol/L (98-107); SODIUM,NA 139 mmol/L (136-145)
[2021-03-06 22:03] VITALS: BP 130/92; PULSE 74
--- NOTE | 2021-03-07 08:46 | CR ---
[id number] RAD/RAD Chest Portable EXAM: RAD Chest Portable INDICATION: CHEST PAIN COMPARISON: May 2018. DISCUSSION/IMPRESSION: Cardiomediastinal silhouette is normal in size and contour. Lungs are clear. No pleural effusion or pneumothorax. Omari Robert MD 03/07/21 0888 Thank you for allowing us to participate in the care of your patient.
== END 2021-03-06 21:50 | disposition home or self-care (01) ==
LOC: KA.ED 20:12
DX: F43.9 Reaction to severe stress, unspecified (principal); M25.522 Pain in left elbow; E78.00 Pure hypercholesterolemia, unspecified; I10 Essential (primary) hypertension; J45.909 Unspecified asthma, uncomplicated; E66.9 Obesity, unspecified; Z68.34 Body mass index [BMI] 34.0-34.9, adult; Z95.5 Presence of coronary angioplasty implant and graft; Z79.01 Long term (current) use of anticoagulants; Z91.048 Other nonmedicinal substance allergy status; Z79.2 Long term (current) use of antibiotics; Z79.899 Other long term (current) drug therapy
CPT/HCPCS: 71045; 80053; 84484; 85025; 93005; 99284; 99285-25

== ENCOUNTER 2024-01-26 18:12 | Emergency (ER) | payer MEDICAID ==
[2024-01-26 18:43] LABS: HEMOGLOBIN 15.2 g/dL (13.0-17.0); MEAN CORPUSCULAR HEMOGLOBIN 28.9 pg (27.0-31.0); MEAN CORPUSCULAR HGB CONC 34.5 g/dL (32.0-36.0); MEAN CORPUSCULAR VOLUME 83.7 fL (82.0-92.0); MEAN PLATELET VOLUME 9.3 fL (7.4-10.4); PLATELET COUNT,PLT 314 10^3/uL (150-400); RED BLOOD CELL COUNT 5.26 10^6/uL (4.50-6.00); RED CELL DISTRIBUTION WIDTH 12.4 % (11.5-14.5); WHITE BLOOD CELL COUNT,WBC 10.06 10^3/uL (5.00-10.00)
[2024-01-26 19:03] LABS: ALBUMIN 3.79 g/dL (3.40-5.00); ANION GAP 13.9 mmol/L (5-15); BILIRUBIN TOTAL 0.4 mg/dL (0.2-1.0); CALCIUM 8.7 mg/dL (8.7-10.3); CARBON DIOXIDE,CO2 27.3 mmol/L (21.0-32.0); CREATININE 1.14 mg/dL (0.51-1.17); POTASSIUM,K 4.2 mmol/L (3.5-5.1)
[2024-01-26 20:06] VITALS: BP 127/83; PULSE 80
== END 2024-01-26 19:47 | disposition home or self-care (01) ==
LOC: KA.ED 18:12
DX: R07.2 Precordial pain (principal); E78.00 Pure hypercholesterolemia, unspecified; I10 Essential (primary) hypertension; Z91.09 Other allergy status, other than to drugs and biological substances; Z79.51 Long term (current) use of inhaled steroids; Z79.82 Long term (current) use of aspirin; Z79.899 Other long term (current) drug therapy; Z95.5 Presence of coronary angioplasty implant and graft
CPT/HCPCS: 71045; 80053; 84484; 85027; 85379; 99285

== ENCOUNTER 2024-12-05 10:51 | Day surgery (SDC) | payer MEDICAID ==
[2024-12-05] MEDS ORDERED: Lactated Ringers 1,000 ML ONE (10:56)
[2024-12-05] MEDS: Sodium Chloride 0.9% 10 ML Syringe FLUSH PRN (11:12)
[2024-12-05] MEDS: Lactated Ringers 1,000 ML IV SCH (11:12)
[2024-12-05] MEDS ORDERED: Midazolam 1 MG/ML 2 ML SDV ONE (11:16)
[2024-12-05] MEDS ORDERED: Propofol 200 MG/20 ML SDV ONE (11:16)
[2024-12-05 13:25] VITALS: BP 123/75; PULSE 77
== END 2024-12-05 13:17 | disposition home or self-care (01) ==
LOC: KA.SDS 10:51
PROVIDERS: ATTEND Family Medicine
DX: Z12.11 Encounter for screening for malignant neoplasm of colon (principal); D12.5 Benign neoplasm of sigmoid colon; K57.30 Diverticulosis of large intestine without perforation or abscess without bleeding; K62.89 Other specified diseases of anus and rectum; I25.10 Atherosclerotic heart disease of native coronary artery without angina pectoris; I10 Essential (primary) hypertension; E66.9 Obesity, unspecified; K21.9 Gastro-esophageal reflux disease without esophagitis; Z68.30 Body mass index [BMI] 30.0-30.9, adult; Z79.899 Other long term (current) drug therapy; Z91.09 Other allergy status, other than to drugs and biological substances; Z68.34 Body mass index [BMI] 34.0-34.9, adult
CPT/HCPCS: 00811; J2250; J2704; J7120